=== PATIENT | male | born 1935 | race Two or more races ===

== ENCOUNTER 2021-11-11 10:21 | Outpatient (CLI) | payer MEDICARE, OTHER | END 2021-11-11 23:59 | disposition home or self-care (01) | LOC: MSC 10:21 | PROVIDERS: ATTEND Anesthesiology | DX: G89.4 Chronic pain syndrome (principal); M54.16 Radiculopathy, lumbar region; M40.299 Other kyphosis, site unspecified; M62.830 Muscle spasm of back; M25.562 Pain in left knee; M25.561 Pain in right knee; M79.606 Pain in leg, unspecified; Z79.1 Long term (current) use of non-steroidal anti-inflammatories (NSAID) ==